=== PATIENT | female | born 2005 | race Caucasian/White ===

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

== ENCOUNTER 2024-12-07 01:06 | Outpatient (CLI) | payer MEDICAID, SELFPAY ==
--- NOTE | 2024-12-07 | DI.US_ITS ---
Exam(s) US OB LUCIANO WEIGHT EXAM: US OB LUCIANO WEIGHT CLINICAL HISTORY: Uterine size-date discrepancy in third trimester, O26.843; growth, LUCIANO. TECHNIQUE: Transabdominal obstetrical ultrasound performed. COMPARISON: US US OB INOCENTE >14WKS W/[id number] from 08/31/2024 FINDINGS:: Number of fetuses: 1 position: CEPHALIC. spine is anterior. Placental location: ANTERIOR No evidence of previa. BIOMETRIC DATA: BPD: 8.49cm, 34weeks 1day HC: 31.03cm, 34weeks 5days AC: 27.75cm, 31weeks 6days FL: 6.5cm, 33weeks 4days EFW: 2,057.12g, 4lb 8.37oz, 6.9% Composite Age: 33weeks 4days RHONDA: 01/21/2025 Heart Rate: 141bpm Amniotic fluid index: 12.75cm. Visually, amount of fluid at low normal range. Heart Rate: 141bpm IMPRESSION: size is at the lower range of of normal for dates. Estimated weight is at 7 percentile. LUCIANO lower limit of normal range. DATA REPOSITORY:
== END 2024-12-07 01:26 ==
LOC: DI 01:06
PROVIDERS: PCP Nurse Practitioner Family; Visit Provider Nurse Practitioner Women's Health
DX: Z34.83 Encounter for supervision of other normal pregnancy, third trimester (principal); Z3A.34 34 weeks gestation of pregnancy
CPT/HCPCS: 76816

== ENCOUNTER 2025-04-15 20:18 | Emergency (ER) | payer MEDICAID, SELFPAY ==
[2025-04-15 20:22] VITALS: BP 139/98; PULSE 72; RESP 16; TEMP 36.9; O2SAT 100
[2025-04-15 20:24] VITALS: BP 139/98; PULSE 72; RESP 16; TEMP 36.9; O2SAT 100
--- NOTE | 2025-04-15 21:11 | W.ED.GENAD ---
Discharge Plan Disposition Patient Disposition: Home Condition: Stable Discharge Details Clinical Impression: Dry tooth socket Primary Care Provider: Ludmila Petersen ED Provider: Jaquelin Wallace Home Meds and New Rx's Prescriptions: No Action Nexplanon 68 mg implant 1 implant subdermal ONCE Rx Instructions: as a single dose diphenhydramine HCl [Allergy (diphenhydramine)] 12.5 mg/5 mL liquid 12.5 mg PO Q6H PRN (Reason: allergy symptoms) Qty: 118 0RF albuterol sulfate 90 mcg/actuation HFA aerosol inhaler 2 puff Inhalation Q4H PRN Qty: 18 0RF Rx Instructions: 2 puffs with spacer every 4hr as needed for cough/wheeze (DME) Space Chamber Plus Spacer 1 ea Miscellaneous Q4H PRN Qty: 1 0RF Rx Instructions: use with inhaler as directed cephalexin 500 mg capsule 500 mg PO Q8H Patient Comments: TAKE ONE CAPSULE BY MOUTH EVERY 8 HOURS FOR 7 DAYS Discharge Instructions Instructions: Dry Socket Additional Instructions: You are seen in the emergency department today for evaluation of pain after wisdom tooth extraction, concerning for dry socket. In our department a full physical examination performed to receive medications for management of your pain. Please use therapeutic dosing of Tylenol (acetaminophen) & Advil (ibuprofen) in an alternating fashion as follows: Take 1000mg of Tylenol every 6 hours without missing doses- that is 4 times per day. [place] in between the Tylenol doses, take 600mg of Advil also on a 6 hour schedule, that is also 4 times per day. With this strategy, you will be taking something for fever/pain as often as every 3 hours. The daily maximum dosing of Tylenol is 4000mg, and the daily maximum dosing of Advil is 2400mg. Please note that some common cold medications & prescription pain medications may contain acetaminophen and you need to read OTC drug labels and factor that in to maximum daily doses. I have provided you with a short course of oxycodone to get you through until tomorrow and you can call your dentist for definitive management. Please maintain good hydration, and thank you for allowing us to be part of your care. Discharge Data Discharge Date/Time-TO BE ENTERED AT DEPARTURE: 04/15/25 22:46 HPI General Mode of arrival: ambulatory. Date/Time Provider Initiated Documentation: 04/15/25 20:26. Limitations to Documentation: no limitations. Information obtained by: patient, family and old records reviewed. HPI Narrative: This is a 19-year-old female patient presenting for evaluation of dental pain. The patient had her wisdom teeth extracted approximately 4 days ago, and is concerned about dry socket in the right upper area. She states that her pain was initially improving, she has been taking Tylenol, ibuprofen, and hydrocodone. She states that tonight she had sudden severe worsening of her pain in the right [place]. She attempted to find oil of clove but was unable to locate any. She states that she took her last dose of medications around 5 PM. She has been able to eat and drink, manage her secretions, and has not had a fever or chills. She is already taking clindamycin and has the ability to call her dental provider tomorrow. She does have a at home, but states no IRON INSTALLER related concerns, and has somebody who can watch her child for her safely if she requires further narcotic medicine. Related Data Home Medications ?Medication ?Instructions ?Recorded ?Confirmed inhalational spacing device (Space #1 ea 10/16/20 04/15/25 Chamber Plus) diphenhydramine HCl 12.5 mg/5 mL 12.5 mg (5 mL) PO Q6H PRN allergy 03/07/22 04/15/25 oral liquid (Allergy symptoms #118 mL (diphenhydramine)) albuterol sulfate 90 mcg/actuation 2 puff inhalation Q4H PRN #18 grams 09/18/24 04/15/25 aerosol inhaler etonogestrel 68 mg subdermal 1 implant subdermal ONCE 02/28/25 04/15/25 implant (Nexplanon) cephalexin 500 mg capsule 500 mg PO Q8H 04/15/25 04/15/25 Previous Rx's ?Medication ?Instructions ?Recorded inhalational spacing device (Space #1 ea 10/16/20 Chamber Plus) diphenhydramine HCl 12.5 mg/5 mL 12.5 mg (5 mL) PO Q6H PRN allergy 03/07/22 oral liquid (Allergy symptoms #118 mL (diphenhydramine)) albuterol sulfate 90 mcg/actuation 2 puff inhalation Q4H PRN #18 grams 09/18/24 aerosol inhaler Allergies Allergy/AdvReac Type Severity Reaction Status Date / Time Penicillins Allergy Intermediate Hives Verified 04/15/25 20:24 lactose AdvReac Nausea Verified 04/15/25 20:24 General Stated Complaint: DentalOral VANESA: 4 Exam Narrative Exam Narrative: Gen: Awake and alert, in no apparent distress HEENT: Non-icteric sclera, the patient has mild trismus within the range of appropriate for the postoperative state. I do note evidence of dislodgment of the clot with associated dry socket in the right upper wisdom tooth region (tooth #1). The lower right side socket (32) also appears slightly inflamed, though the left sides appear to have a intact clot. Floor the mouth is soft, posterior pharynx without erythema, exudate, or swelling. Neck: Supple Lungs: No apparent respiratory distress, normal respiratory effort. CV: Appears well perfused, strong distal pulses Abdomen: Non-distended MSK: Moves 4 extremities without apparent limitation in ROM Skin: Visualized skin without rashes, cyanosis. Neuro: Normal Gait, no obvious focal deficits or facial asymmetry. Speaks in full, clear sentences. Psych: Appropriate for situation. Course Vital Signs Vital signs: Vital Signs Temperature 36.9 C 04/15/25 20:22 Pulse 72 04/15/25 20:22 Respiratory Rate 16 04/15/25 20:22 Blood Pressure 139/98 H 04/15/25 20:22 Pulse Oximetry 100 04/15/25 20:22 Temperature 36.9 C 04/15/25 20:24 Pulse 72 04/15/25 20:24 Respiratory Rate 16 04/15/25 20:24 Blood Pressure 139/98 H 04/15/25 20:24 Pulse Oximetry 100 04/15/25 20:24 Pain Level 10 04/15/25 20:24 Medical Decision Making This is a 19-year-old female patient presenting for evaluation of dental pain. Differential includes but is not limited to dry socket, no evidence for periapical abscess or acute infection the patient is appropriately antibiosis. No evidence for deep space infection such as Lance's angina, retropharyngeal abscess, etc. The patient had a pledget bupivacaine placed in the right wisdom tooth socket, which was kept in place for topical analgesia. She received Tylenol and oxycodone and had significant improvement in her symptoms. I was unable unfortunately to identify a source of oil of clove for her. She was able to drink water and I have no concern for inability to manage hydration, nor significant metabolic or electrolyte derangement given her reassuring vital signs. I provided the patient with a small bottle of oxycodone and she understands that she needs to contact her dentist tomorrow for reevaluation and definitive management. At this time, the patient has had a full medical evaluation and is safe for discharge to home. They are hemodynamically stable, ambulatory, and tolerating PO. They are understanding of the follow-up plan and return precautions. They left our facility without incident. 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) Migraine headache (03/12/16) Sleep difficulties (03/12/16) Mild intermittent asthma without complication (03/12/16) Lactose intolerance (03/12/16) Irritable bowel syndrome (06/18/16) seen by [facility]- dietary changes and [place] tummy tamer Hearing loss (03/12/16) 40% loss, h/o chronic OM s/p PE tubes x4 Constipation (03/12/16) Vitamin D deficiency Chronic serous OM (otitis media) Surgical History Tonsillectomy and adenoidectomy Myringotomy w/ PE (pressure equalizing) tubes x4 sets Family History Mother Asthma Father Cardiomyopathy Paternal Grandmother SVT (supraventricular tachycardia) Paternal Grandfather A-fib Social History Smoking/Tobacco Use Status: Former Tobacco Use Smoking risk assessment performed?: Yes Alcohol Intake: never Drug use: Occasionally Substance use type: marijuana Communication Needs: Corrective Lenses Education Level: high school Details: [employer] year- alternative school program Pets and animals: Yes (geckos, guinea pigs, hedgehog) Pets and animals: guinea pig(s) and other Current gender identity: female What type of physical activity do you participate in: other Details: Softball Seatbelt use: always Helmet use: Yes Water heater temp set <120 deg: Yes Fire extinguisher in home: Yes Carbon monox detector in home: Yes Firearms in home: No Do you feel safe at home: Yes Do you feel safe in your relationship?: Yes Additional Social history: Father is History History 1 Para 1 Hx # Term Pregnancies 1 Multiple births Hx # Pregnancies Ectopic pregnancies AB induced Hx Number of Living Children AB spontaneous Past Pregnancies Del. Date GA/Weeks # Preg Succ Route Wgt Sex Labor Lgth Anesthesia Location Prov Complic 01/03/25 38 Yes vaginal 2693.205 g Male [place], [place] Delivery Date: 01/03/25 Last Updated by: Nava Bundy RN Dante
[2025-04-15] MEDS: Acetaminophen 500 MG TAB 1000 MG PO (21:40)
[2025-04-15] MEDS: oxyCODONE 5 MG TAB PO (21:40)
[2025-04-15 23:01] VITALS: BP 132/88; PULSE 70; RESP 16; O2SAT 98
== END 2025-04-15 22:46 | disposition home or self-care (01) ==
PROVIDERS: Emergency Provider Emergency Medicine; PCP Nurse Practitioner Family
DX: M27.3 Alveolitis of jaws; Z98.818 Other dental procedure status
CPT/HCPCS: 99283 ×2